=== PATIENT | female | born 1950 | race Two or more races ===

== ENCOUNTER 2019-08-05 10:14 | Emergency (ER) | payer OTHER ==
[~2019-08-05] VITALS: Ht 165.1 cm; Wt 72.6 kg
[2019-08-05] MEDS ORDERED: COZAAR100 MG (10:34)
[2019-08-05] MEDS ORDERED: SYNTHROID88 MCG (10:34)
[2019-08-05] MEDS ORDERED: MICROZIDE12.5 MG PO (15:57)
== END 2019-08-05 16:29 | disposition home or self-care (01) ==
LOC: ER 10:14
DX: I16.0 Hypertensive urgency (principal); I10 Essential (primary) hypertension

== ENCOUNTER 2021-01-17 11:58 | Emergency (ER) | payer OTHER ==
[~2021-01-17] VITALS: Ht 165.1 cm; Wt 76.2 kg
[~2021-01-17 11:58] MED LIST: COZAAR100 MG; MICROZIDE12.5 MG PO; SYNTHROID88 MCG
[2021-01-17] MEDS ORDERED: DICLOFENAC POTA50 MG PO (15:59)
[2021-01-17] MEDS ORDERED: ORPHENADRINE C100 MG PO (15:59)
== END 2021-01-17 16:16 | disposition home or self-care (01) ==
LOC: ER 11:58
DX: M54.5 Low back pain (principal)

== ENCOUNTER 2021-10-08 13:05 | Outpatient (CLI) | payer OTHER ==
[~2021-10-08 13:05] MED LIST changes: +DICLOFENAC POTA50 MG PO; +ORPHENADRINE C100 MG PO
== END 2021-10-08 13:29 | disposition home or self-care (01) ==
LOC: MAMO-SONO 13:05 → NUCLEAR 13:30
DX: Z12.31 Encounter for screening mammogram for malignant neoplasm of breast (principal)

== ENCOUNTER 2024-08-06 13:22 | Emergency (ER) | payer OTHER ==
[~2024-08-06] VITALS: Ht 162.6 cm; Wt 66.7 kg
[2024-08-06 18:35] LABS: HEMATOCRIT 44.1 % (36.0-45.00); HEMOGLOBIN 15.1 g/dL (12.0-15.00); MEAN CELL VOLUME 94.4 fL (80.00-100.00); MEAN CORPUSCULAR HEMOGLOBIN 32.3 pg (27.00-32.0); MEAN CORPUSCULAR HGB CONC 34.3 g/dl (32.0-36.0); PLATELET COUNT 230 K/uL (150-450); RED BLOOD COUNT 4.67 M/uL (4.00-6.00); RED CELL DISTRIBUTION WIDTH 13.9 % (11.5-14.5)
[2024-08-06 18:48] LABS: ALBUMIN 3.5 gm/dL (3.4-5.0); BILIRUBIN TOTAL 0.46 mg/dL (0.3-1.2); CALCIUM 9.4 mg/dL (8.5-10.1); CREATININE SERUM 0.76 mg/dL (0.55-1.02); GFR 75.02; POTASSIUM 3.88 mEq/L (3.5-5.1); TOTAL PROTEIN 7.5 gm/dL (6.4-8.2)
[2024-08-06] MEDS ORDERED: ROBITUSSIN HON237 ML PO (19:46)
[2024-08-06] MEDS ORDERED: VITAMIN C500 M6 PO (19:47)
== END 2024-08-06 21:15 | disposition home or self-care (01) ==
LOC: ER 13:24
DX: J45.901 Unspecified asthma with (acute) exacerbation (principal); F17.210 Nicotine dependence, cigarettes, uncomplicated; I10 Essential (primary) hypertension; Z20.822 Contact with and (suspected) exposure to COVID-19

== ENCOUNTER 2025-07-07 11:51 | Outpatient (CLI) | payer OTHER ==
[~2025-07-07 11:51] MED LIST changes: +ROBITUSSIN HON237 ML PO; +VITAMIN C500 M6 PO
== END 2025-07-07 11:53 | disposition home or self-care (01) ==
LOC: TOM 11:51
PROVIDERS: ATTEND Internal Medicine Cardiovascular Disease
DX: J44.9 Chronic obstructive pulmonary disease, unspecified (principal)